=== PATIENT | female | born 1960 | race African-American/Black ===

== ENCOUNTER 2024-01-08 13:52 | Emergency (ER) | payer MEDICARE, MEDICAID ==
[~2024-01-08] VITALS: Ht 162.6 cm; Wt 62.6 kg
[2024-01-08 13:54] VITALS: O2SAT 99
[2024-01-08 14:02] VITALS: TEMP 98.3; O2SAT 98
[2024-01-08 15:54] VITALS: BP 123/73; PULSE 76; RESP 18
[2024-01-08] MEDS: IBUPROFEN 800MG TABLET PO ONE (15:54)
[2024-01-08] MEDS ORDERED: NAPR-681 MT (16:23)
== END 2024-01-08 16:43 | disposition home or self-care (01) ==
LOC: ER 14:02
DX: S80.11XA Contusion of right lower leg, initial encounter (principal); X58.XXXA Exposure to other specified factors, initial encounter; Y93.89 Activity, other specified; Y92.89 Other specified places as the place of occurrence of the external cause; Y99.8 Other external cause status
CPT/HCPCS: 73590; 99283